=== PATIENT | female | born 2000 | race Caucasian/White ===

== ENCOUNTER 2021-07-31 22:42 | Emergency (ER) ==
[~2021-07-31] VITALS: Ht 165.1 cm; Wt 51.8 kg
[2021-07-31 22:43] VITALS: BP 113/69
[2021-07-31] MEDS ORDERED: birth control pill (22:52)
[2021-08-01] MEDS ORDERED: KURV0.15 (12:02)
[2021-08-01] MEDS ORDERED: OMEP-218 PO (18:07)
== END 2021-08-01 00:01 | disposition left against medical advice (07) ==
LOC: M ED 22:42
DX: Z53.29 Procedure and treatment not carried out because of patient's decision for other reasons (principal)

== ENCOUNTER 2021-08-01 11:44 | Emergency (ER) | payer OTHER ==
[~2021-08-01] VITALS: Ht 165.1 cm; Wt 51.9 kg
[~2021-08-01 11:44] MED LIST: birth control pill
[2021-08-01] MEDS ORDERED: KURV0.15 (12:02)
[2021-08-01 13:31] LABS: BASO % 0.4 % (0.0-1.0); EOS % 0.3 % (0.0-3.0); HEMATOCRIT 44.8 % (36.0-47.0); LYMPH # 2.7 10^3/uL (1.5-5.0); LYMPH % 37.6 % (24.0-44.0); MEAN CORPUSCULAR HEMOGLOBIN 31.1 pg (27.0-33.0); MEAN CORPUSCULAR HGB CONC 33.5 g/dl (32.0-36.5); MEAN CORPUSCULAR VOLUME 92.8 fl (80.0-96.0); MONO # 0.7 10^3/uL (0.0-0.8); MONO % 9.7 % (2.0-8.0); NEUTROPHILS # 3.7 10^3/uL (1.5-8.5); NEUTROPHILS % 51.7 % (36.0-66.0); PLATELET COUNT, AUTOMATED 268 10^3/uL (150-450); RED BLOOD COUNT 4.83 10^6/uL (4.00-5.40); WHITE BLOOD COUNT 7.2 10^3/uL (4.0-10.0)
[2021-08-01 13:58] LABS: HCG, SERUM QUALITATIVE NEGATIVE (NEGATIVE)
[2021-08-01 13:59] LABS: ALBUMIN 4.2 GM/DL (3.2-5.2); ALT/SGPT 21 U/L (12-78); BILIRUBIN,DIRECT 0.3 MG/DL (0.0-0.2); BILIRUBIN,TOTAL 0.9 MG/DL (0.2-1.0); BLOOD UREA NITROGEN 9 MG/DL (7-18); CALCIUM LEVEL 9.4 MG/DL (8.5-10.1); CARBON DIOXIDE LEVEL 28 MEQ/L (21-32); CHLORIDE LEVEL 107 MEQ/L (98-107); CREATININE FOR GFR 0.79 MG/DL (0.55-1.30); GLUCOSE, FASTING 92 MG/DL (70-100); LIPASE 109 U/L (73-393); POTASSIUM SERUM 4.3 MEQ/L (3.5-5.1); SODIUM LEVEL 141 MEQ/L (136-145); TOTAL PROTEIN 7.5 GM/DL (6.4-8.2)
[2021-08-01] MEDS ORDERED: ISOVUE-370 76% 100ML VIAL As Ordered ONE (14:26)
--- NOTE | 2021-08-01 14:44 | REP ---
INDICATION: graciela-umbilical RLQ pain r/o appy. COMPARISON: None TECHNIQUE: Axial contrast-enhanced images from the lung bases to the pubic symphysis using 100 cc Isovue 370 intravenous contrast material. Coronal and sagittal reformations obtained. This CT examination was performed using the following dose reduction techniques: Automated exposure control, adjustment of mA and/or kv according to the patient's size, and the use of iterative reconstruction technique. FINDINGS: Lung bases are clear. Visualized heart and pericardium normal. Liver, spleen, pancreas, gallbladder, bilateral adrenal glands and kidneys are normal. The enteric system including stomach, small, and large bowel appears normal. No evidence for obstruction or acute inflammatory process. Normal terminal ileum and appendix are identified in the right lower quadrant. Pelvis demonstrates normal bladder and age-appropriate uterus/adnexa. No ascites. No free air. No intraperitoneal or retroperitoneal adenopathy. Abdominal aorta and vasculature appear normal. Musculoskeletal structures are intact and without acute osseous abnormality. IMPRESSION: No acute abdominopelvic pathology appreciated. <Electronically signed by Aidan Montaño > 08/01/21 [id number]
[2021-08-01] MEDS ORDERED: GI COCKTAIL 50ML BTL(HYOSCYAMINE/MAALOX/LIDOCAINE VISCOUS)(1:3:1) PO ONE (15:15)
[2021-08-01] MEDS ORDERED: PANTOPRAZOLE 40MG VIAL (C9113 PER 1) IV ONE (16:40)
--- NOTE | 2021-08-01 16:55 | REP ---
INDICATION: chest pain COMPARISON: None. TECHNIQUE: PA and lateral. FINDINGS: The mediastinum and cardiac silhouette are normal. The lung partida are clear and without acute consolidation, effusion, or pneumothorax. The skeletal structures are intact and normal. IMPRESSION: No acute cardiopulmonary process. <Electronically signed by Aidan Montaño > 08/01/21 [id number]
[2021-08-01 17:00] LABS: CK-MB VALUE MASS < 1.0 NG/ML (<3.6); CPK CREATINE PHOSPHOKINASE 47 U/L (26-192); MB/CK RELATIVE INDEX 2.13 (< OR =4); TROPONIN I < 0.02 NG/ML (< 0.10)
[2021-08-01] MEDS ORDERED: OMEP-218 PO (18:07)
[2021-08-01 18:34] VITALS: BP 110/81
--- NOTE | 2021-08-01 20:45 | ECGEPIP ---
[facility] - ED Test Date: 2021-08-01 Pat Name: MIKEL GUERIN Department: Room: - Gender: Female [employer]ill [employer]man: margarita : 2000 Requested By: LOLA Meng PA-C Order Number: [id number] Reading MD: My Martel Measurements Intervals [place] Rate: 71 P: 58 VA: 120 QRS: 46 QRSD: 72 T: 27 QT: 388 QTc: 421 Interpretive Statements Normal sinus rhythm with sinus arrhythmia Possible Left atrial enlargement irbbb no prior Electronically Signed on 08-01-2021 20:45:27 EST by My Martel
== END 2021-08-01 18:36 | disposition home or self-care (01) ==
LOC: M ED 11:44
DX: F41.9 Anxiety disorder, unspecified (principal); K21.9 Gastro-esophageal reflux disease without esophagitis; Z79.3 Long term (current) use of hormonal contraceptives; Z88.1 Allergy status to other antibiotic agents; Z88.2 Allergy status to sulfonamides
CPT/HCPCS: 71046; 74177; 80048; 80076; 81001; 82550; 82553; 83690; 84484; 84703; 85025; 93005; 96374; 99284; C9113; Q9967

== ENCOUNTER 2021-12-03 20:39 | Emergency (ER) | payer OTHER ==
[~2021-12-03] VITALS: Ht 165.1 cm; Wt 56.6 kg
[2021-12-03 20:39] VITALS: BP 150/85
[~2021-12-03 20:39] MED LIST changes: +KURV0.15; +OMEP-173 PO
[2021-12-03] MEDS ORDERED: ACET32TAB PO (20:47)
[2021-12-03] MEDS ORDERED: MILI1TAB PO (20:47)
[2021-12-03] MEDS ORDERED: IBUP200C28 PO (20:47)
[2021-12-03] MEDS ORDERED: LIDOCAINE VISCOUS 2% SOLN 15ML UDC SSP ONE (23:45)
[2021-12-03] MEDS ORDERED: AUGMENTIN 875 MG TAB PO ONE (23:45)
[2021-12-03] MEDS ORDERED: ACETAMINOPHEN 325 MG TAB PO ONE (23:45)
[2021-12-04] MEDS ORDERED: KETOROLAC 30 MG/ML 1ML VIAL IM ONE
[2021-12-04] MEDS ORDERED: AMOX875T2 PO (00:07)
== END 2021-12-04 00:49 | disposition home or self-care (01) ==
LOC: M ED 20:39
DX: K02.9 Dental caries, unspecified (principal); K04.7 Periapical abscess without sinus; Z88.1 Allergy status to other antibiotic agents; Z88.2 Allergy status to sulfonamides; Z79.3 Long term (current) use of hormonal contraceptives
CPT/HCPCS: 96372; 99282; J1885